=== PATIENT | female | born 1945 | race Caucasian/White ===

== ENCOUNTER 2017-01-09 19:38 | Observation (INO) ==
[2017-01-09] MEDS ORDERED: 0.9 % Sodium Chloride 1,000 ML IVC ONE ×2 (19:58→21:44)
--- NOTE | 2017-01-09 20:18 | Emergency Department Note ---
Addendum entered and electronically signed by Boris Choi DO 01/09/17 22 :21: EKG shows sinus tachycardia at 100 with normal axis and intervals. No ST elevation or depression. No T-wave inversions or flattening. No significant change other than rate from 10/20/2016. Original Note: Disposition Clinical Impression: SIRS (systemic inflammatory response syndrome) Urinary tract infection Qualifiers: Urinary tract infection type: acute cystitis Hematuria presence: with hematuria Qualified Code(s): N30.01 - Acute cystitis with hematuria Disposition: Admitted As Inpatient Condition: Good Time of Disposition: 22:06 General Adult HPI - General Chief complaint: ED Fever Stated complaint: Fever / Sore Throat / Dizziness Time Seen by Provider: 01/09/17 19:41 Source: patient Limitations: no limitations - History of Present Illness Pain Scale: 10 - Related Data Home Medications Medication Instructions Recorded Confirmed Albuterol Sulfate [Albuterol 2 puff IH Q4H PRN 10/28/16 10/28/16 Inhaler] Aspirin [Lo-Dose Aspirin EC] 81 mg PO DAILY 10/28/16 10/28/16 Atorvastatin Calcium [Lipitor] 40 mg PO DAILY 10/28/16 10/28/16 DiphenhydraMINE [Benadryl] 50 mg PO ONCE 10/28/16 10/28/16 Gabapentin [Neurontin] 600 mg PO TID 10/28/16 10/28/16 Omeprazole 40 mg PO DAILY 10/28/16 10/28/16 Ondansetron HCl [Zofran] 4 mg PO TID PRN 10/28/16 10/28/16 Potassium Chloride [Klor-Con 10 meq PO DAILY 10/28/16 10/28/16 Sprinkle] Sertraline [Zoloft] 150 mg PO DAILY 10/28/16 10/28/16 Tizanidine HCl [Zanaflex] 4 mg PO TID PRN 10/28/16 10/28/16 Valsartan/Hydrochlorothiazide 1 each PO DAILY 10/28/16 10/28/16 [Diovan Hct 160-25 mg Tablet] predniSONE [Prednisone] 50 mg PO ONCE 10/28/16 10/28/16 Previous Rx's Medication Instructions Recorded Acetaminophen [Tylenol] 1,000 mg PO Q6HR PRN #90 tablet 10/28/16 Clopidogrel [Plavix] 75 mg PO DAILY #30 tablet 10/28/16 Allergies Allergy/AdvReac Type Severity Reaction Status Date / Time Iodinated Contrast Media - Allergy Hives Verified 10/28/16 06:43 Oral and INO Inhibitors AdvReac Cough Verified 10/28/16 06:43 Past Medical History - Past Medical History Medical history: Reports: GERD, hyperlipidemia, hypertension Surgical history: Reports: cholecystectomy, hysterectomy Psychiatric history: Reports: anxiety - Social History Smoking Status: Former smoker Smokeless Tobacco Status: No Alcohol use: Reports: none Drug use: Reports: none Physical Exam - Head Head exam: atraumatic, normocephalic, normal inspection - Eye Eye exam: Present: normal appearance, PERRL, EOMI - ENT ENT exam: normal exam, normal oropharynx, mucous membranes moist - Neck Neck exam: Present: normal inspection, full ROM, trachea midline - Chest Chest inspection: Present: normal inspection, symmetric chest wall rise - Respiratory Respiratory exam: Clear to auscultation bilaterally without wheezes rales or rhonchi Cardiovascular Cardiovascular exam: Present: regular rate, normal rhythm, normal heart sounds - Abdominal Exam Abdominal exam: Present: soft, Non-Tender. Absent: tenderness, distention, guarding, rebound, rigidity - Extremities Exam Extremities exam: Present: normal inspection, full ROM - Back Exam Back exam: Present: normal inspection, full ROM. Absent: tenderness, CVA tenderness (R), CVA tenderness (L) - Neurological Exam Neurological exam: Present: alert, oriented X3, CN II-XII intact - Psychiatric Psychiatric exam: Present: normal affect, normal mood - Skin Skin exam: Present: warm, dry, intact, normal color - General Limitations: no limitations General appearance: alert Course - Reevaluation(s) Reevaluation #1: Patient found to have urinary tract infection here with significant leukocytosis at 19. Patient has a normal lactate. Accepted by Dr. Monroe on [facility]. Time: 22:05 Vital Signs Temperature 98.3 F 01/09/17 19:41 Pulse Rate 95 01/09/17 19:41 Respiratory Rate 14 01/09/17 19:41 Blood Pressure 156/77 01/09/17 19:41 O2 Sat by Pulse Oximetry 97 01/09/17 19:41 Temperature 98.3 F 01/09/17 19:41 Pulse Rate 100 01/09/17 21:03 Respiratory Rate 20 01/09/17 21:03 Blood Pressure 146/78 01/09/17 21:03 O2 Sat by Pulse Oximetry 96 01/09/17 21:03 Oxygen Delivery Oxygen Delivery Room Air Medical Decision Making - Lab Data Result diagrams: 01/09/17 20:36 01/09/17 20:36 Lab Results 01/09/17 01/09/17 01/09/17 Range/Units 20:20 20:35 20:36 WBC 19.3 H (4.3-11.1) K/mcL RBC 5.13 H (3.82-4.97) M/mcL Hgb 14.0 (11.5-15.4) g/dL Hct 42.9 (35.3-44.9) % MCV 83.6 (83.0-100.0) fL MCH 27.3 L (28.0-33.3) pg MCHC 32.6 (31.6-35.5) g/dL RDW 13.2 (11.5-14.5) % Plt Count 148 (140-400) K/mcL MPV 10.6 (9.4-12.4) fL Immature Gran % 0.4 (0-4) % Seg Neutrophils % 90.6 % Lymphocytes % 3.0 % Monocytes % 5.8 % Eosinophils % 0.0 % Basophils % 0.2 % Neutrophils # 17.5 H (1.6-8.9) K/mcL Lymphocytes # 0.6 (0.6-4.6) K/mcL Monocytes # 1.1 (0.0-1.3) K/mcL Eosinophils # 0.0 (0.0-0.6) K/mcL Basophils # 0.0 (0.0-0.2) K/mcL Immature Plt Fraction 6.6 H (1.1-6.1) % VBG pH (7.32-7.42) pH Units VBG pCO2 (41-51) mmHg VBG pO2 (25-40) mmHg VBG HCO3 (21-27) mEq/L Sodium (136-145) mEq/L Potassium (3.5-4.5) mEq/L Chloride (98-109) mEq/L Carbon Dioxide (19-29) mEq/L BUN (7-20) mg/dL Creatinine (0.57-1.11) mg/dL Est GFR ( Amer) (> 60) Est GFR (Non-Af Amer) (> 60) BUN/Creatinine Ratio (6-26) Glucose (70-99) mg/dL Calculated Osmolality (280-300) Lactic Acid 1.4 (0.5-2.2) mmol/L Calcium (8.6-10.8) mg/dL Magnesium (1.6-2.6) mg/dL Urine Color Yellow (Yellow) Urine Clarity Cloudy A (Clear) Urine pH 6.0 (5.0-8.0) pH Units Ur Specific [place] 1.025 (1.010-1.025) Urine Protein 100 H (Neg-Trace) mg/dL Urine Glucose (UA) Normal (Normal) mg/dL Urine Ketones Negative (Negative) mg/dL Urine Blood Large H (Negative) Urine Nitrite Negative (Negative) Urine Bilirubin Negative (Negative) Urine Urobilinogen Normal (Normal) mg/dL Ur Leukocyte Esterase Large H (Negative) Urine Microscopic RBC 30-50 H (0-3) per hpf Urine Microscopic WBC 30-50 H (0-3) per hpf Ur Squamous Epith Cells Many H (None-Few) per lpf Urine Bacteria Few (None-Few) per hpf Hyaline Casts Moderate H (None-Few) per lpf Ur Culture Indicated? YES A (NO) 01/09/17 01/09/17 01/09/17 Range/Units 20:36 20:36 21:53 WBC (4.3-11.1) K/mcL RBC (3.82-4.97) M/mcL Hgb (11.5-15.4) g/dL Hct (35.3-44.9) % MCV (83.0-100.0) fL MCH (28.0-33.3) pg MCHC (31.6-35.5) g/dL RDW (11.5-14.5) % Plt Count (140-400) K/mcL MPV (9.4-12.4) fL Immature Gran % (0-4) % Seg Neutrophils % % Lymphocytes % % Monocytes % % Eosinophils % % Basophils % % Neutrophils # (1.6-8.9) K/mcL Lymphocytes # (0.6-4.6) K/mcL Monocytes # (0.0-1.3) K/mcL Eosinophils # (0.0-0.6) K/mcL Basophils # (0.0-0.2) K/mcL Immature Plt Fraction (1.1-6.1) % VBG pH (7.32-7.42) pH Units VBG pCO2 (41-51) mmHg VBG pO2 (25-40) mmHg VBG HCO3 (21-27) mEq/L Sodium 134 L (136-145) mEq/L Potassium 3.7 (3.5-4.5) mEq/L Chloride 100 (98-109) mEq/L Carbon Dioxide 23 (19-29) mEq/L BUN 14 (7-20) mg/dL Creatinine 1.06 (0.57-1.11) mg/dL Est GFR ( Amer) > 60 (> 60) Est GFR (Non-Af Amer) 51 L (> 60) BUN/Creatinine Ratio 13 (6-26) Glucose 140 H (70-99) mg/dL Calculated Osmolality 281 (280-300) Lactic Acid 0.9 (0.5-2.2) mmol/L Calcium 9.5 (8.6-10.8) mg/dL Magnesium 1.8 (1.6-2.6) mg/dL Urine Color (Yellow) Urine Clarity (Clear) Urine pH (5.0-8.0) pH Units Ur Specific [place] (1.010-1.025) Urine Protein (Neg-Trace) mg/dL Urine Glucose (UA) (Normal) mg/dL Urine Ketones (Negative) mg/dL Urine Blood (Negative) Urine Nitrite (Negative) Urine Bilirubin (Negative) Urine Urobilinogen (Normal) mg/dL Ur Leukocyte Esterase (Negative) Urine Microscopic RBC (0-3) per hpf Urine Microscopic WBC (0-3) per hpf Ur Squamous Epith Cells (None-Few) per lpf Urine Bacteria (None-Few) per hpf Hyaline Casts (None-Few) per lpf Ur Culture Indicated? (NO) 01/09/17 Range/Units 21:53 WBC (4.3-11.1) K/mcL RBC (3.82-4.97) M/mcL Hgb (11.5-15.4) g/dL Hct (35.3-44.9) % MCV (83.0-100.0) fL MCH (28.0-33.3) pg MCHC (31.6-35.5) g/dL RDW (11.5-14.5) % Plt Count (140-400) K/mcL MPV (9.4-12.4) fL Immature Gran % (0-4) % Seg Neutrophils % % Lymphocytes % % Monocytes % % Eosinophils % % Basophils % % Neutrophils # (1.6-8.9) K/mcL Lymphocytes # (0.6-4.6) K/mcL Monocytes # (0.0-1.3) K/mcL Eosinophils # (0.0-0.6) K/mcL Basophils # (0.0-0.2) K/mcL Immature Plt Fraction (1.1-6.1) % VBG pH 7.37 (7.32-7.42) pH Units VBG pCO2 44 (41-51) mmHg VBG pO2 30 (25-40) mmHg VBG HCO3 25.4 (21-27) mEq/L Sodium (136-145) mEq/L Potassium (3.5-4.5) mEq/L Chloride (98-109) mEq/L Carbon Dioxide (19-29) mEq/L BUN (7-20) mg/dL Creatinine (0.57-1.11) mg/dL Est GFR ( Amer) (> 60) Est GFR (Non-Af Amer) (> 60) BUN/Creatinine Ratio (6-26) Glucose (70-99) mg/dL Calculated Osmolality (280-300) Lactic Acid (0.5-2.2) mmol/L Calcium (8.6-10.8) mg/dL Magnesium (1.6-2.6) mg/dL Urine Color (Yellow) Urine Clarity (Clear) Urine pH (5.0-8.0) pH Units Ur Specific [place] (1.010-1.025) Urine Protein (Neg-Trace) mg/dL Urine Glucose (UA) (Normal) mg/dL Urine Ketones (Negative) mg/dL Urine Blood (Negative) Urine Nitrite (Negative) Urine Bilirubin (Negative) Urine Urobilinogen (Normal) mg/dL Ur Leukocyte Esterase (Negative) Urine Microscopic RBC (0-3) per hpf Urine Microscopic WBC (0-3) per hpf Ur Squamous Epith Cells (None-Few) per lpf Urine Bacteria (None-Few) per hpf Hyaline Casts (None-Few) per lpf Ur Culture Indicated? (NO) Attestation Statement - Attestation Attestation: I personally interviewed and examined this patient and my medical decision- making was reviewed with the ED Resident Physician, Dr. Choi. I agree with the documented findings, disposition and treatment plan as described except to the extent set forth below. Patient is a 71-year-old white female brought in by family today for gradually worsening lightheadedness that seems related to positional changes which is cauterized a few falls over the last 24 hours. Patient denies any pain or injury related to the fall, no loss of consciousness. Patient states that she is just been feeling "tired and just do not feel good". Patient denies any fevers although she has been feeling chills. Patient denies any upper respiratory symptoms or sore throat, no chest pain or pressure, no shortness of breath, no abdominal pain or cramping, no nausea vomiting or bowel changes, patient also denies any urinary symptoms or flank pain. The daughter had mentioned that recently discontinued and then restarted on her blood pressure medicines with labile blood pressure issues, was restarted on her blood pressure medicine approximately 6 weeks ago. On exam patient with numerous scabs diffusely located but no acute erythema or warmth, no fluctuance or induration. Remainder of exams within normal limits. EKG was obtained which showed a sinus tachycardia at [address] or T- wave changes. Labs were sent and shows a patient with a leukocytosis with a left shift, evidence of urinary tract infection. Patient meets SIRS criteria with positive source in the urine. Patient has received a liter fluid bolus while here and blood pressure has remained stable throughout her ED course. We will initiate IV antibiotics and admit patient for urosepsis and continued hydration.
[2017-01-09 20:33] LABS: Bilirubin,Urine Negative (Negative); Blood,Urine Large (Negative); Clarity,Urine Cloudy (Clear); Color,Urine Yellow (Yellow); Glucose,Urine (UA) Normal (Normal); Ketones,Urine Negative (Negative); Leukocyte Esterase,Urine Large (Negative); Nitrite,Urine Negative (Negative); Protein,Urine 100 mg/dL (Neg-Trace); Specific Gravity,Urine 1.025 (1.010-1.025); Urobilinogen,Urine Normal (Normal)
[2017-01-09 20:35] LABS: Bacteria,Urine Few per hpf (None-Few); Hyaline Casts,Urine Moderate per lpf (None-Few); Squamous Epithelial Cell,Urine Many per lpf (None-Few); WBC,Urine 30-50 per hpf (0-3)
[2017-01-09 20:43] LABS: Basophils % 0.2 %; Hematocrit 42.9 % (35.3-44.9); Immature Granulocytes % 0.4 % (0-4); Immature Platelets 6.6 % (1.1-6.1); Lymphocytes # 0.6 K/mcL (0.6-4.6); Mean Corpuscular HGB Conc 32.6 g/dL (31.6-35.5); Mean Corpuscular Hemoglobin 27.3 pg (28.0-33.3); Mean Corpuscular Volume 83.6 fL (83.0-100.0); Mean Platelet Volume 10.6 fL (9.4-12.4); Monocytes # 1.1 K/mcL (0.0-1.3); Monocytes % 5.8 %; Neutrophils # 17.5 K/mcL (1.6-8.9); Platelet Count 148 K/mcL (140-400); Red Blood Count 5.13 M/mcL (3.82-4.97); Red Cell Distribution Width 13.2 % (11.5-14.5); Segmented Neutrophils % 90.6 %
[2017-01-09 20:45] LABS: RBC,Urine 30-50 per hpf (0-3)
[2017-01-09 20:59] LABS: BUN/Creatinine Ratio 13 (6-26); Blood Urea Nitrogen 14 mg/dL (7-20); Calcium 9.5 mg/dL (8.6-10.8); Carbon Dioxide 23 mEq/L (19-29); Chloride 100 mEq/L (98-109); Glucose 140 mg/dL (70-99); Osmolality,Calculated 281 (280-300); Potassium 3.7 mEq/L (3.5-4.5); Sodium 134 mEq/L (136-145); eGFR For African Americans > 60 (> 60); eGFR For Non-African Americans 51 (> 60)
[2017-01-09 22:00] LABS: VBG HCO3 25.4 mEq/L (21-27); VBG PH 7.37 pH Units (7.32-7.42)
[2017-01-09] MEDS ORDERED: Naloxone 0.4 MG/ML INJ IVP PRN (22:49)
[2017-01-09] MEDS ORDERED: Acetaminophen 325 MG TABLET PO PRN (22:49)
--- NOTE | 2017-01-09 22:55 | Internal Med History&Physical ---
Date of Encounter: 01/09/17 Time of Encounter: 22:00 Assessment and Plan (1) Sepsis Current visit: Yes Status: Acute Patient has UTI, elevated WBC and tachycardia in the emergency room. Meet criteria of sepsis. Her lactate is normal. - Goal directed resuscitation has been started from ER. Continue IV fluid. - Continue Rocephin IV. - Blood culture and urine culture sent. Follow-up result. - Closely monitor patient. Qualifiers: Sepsis type: sepsis due to unspecified organism Qualified Code(s): A41.9 - Sepsis, unspecified organism (2) URI (upper respiratory infection) Current visit: Yes Status: Acute Patient has symptoms of URI. - We will do the rapid strep test. However, patient is on antibiotics already. - Symptomatic treatment and supportive treatment Qualifiers: URI type: acute tonsillitis Pharyngitis/tonsillitis etiology: unspecified etiology Qualified Code(s): J03.90 - Acute tonsillitis, unspecified (3) Hypertension Current visit: Yes Status: Acute BP is stable. Continue home medication. Qualifiers: Hypertension type: essential hypertension Qualified Code(s): I10 - Essential (primary) hypertension (4) DVT prophylaxis Current visit: Yes Status: Acute Heparin subcutaneously (5) Urinary tract infection Current visit: Yes Status: Acute Continue antibiotic. Follow-up urine culture. Qualifiers: Urinary tract infection type: acute cystitis Hematuria presence: without hematuria Qualified Code(s): N30.00 - Acute cystitis without hematuria Internal Medicine - H&P: HPI Chief complaint: Dizziness and weakness Admitted From: Home Plans for Post Hospital Care: Home History of present illness: Ms. Oliveira is a 71 year old female presented to ER for generalized weakness, dizziness. Patient said she has a runny nose and sore throat for several days. She feels weak, dizziness, and today she almost fell. She denies loss of consciousness. She said that she has chills but not sure if she has fever. She has no nausea, vomiting, chest pain, SOB, cough, or diarrhea. She complains of mild abdominal pain. She denies dysuria, urgency, burning on urination. In emergency room, she was found to tachycardia and leukocytosis. She was also found UTI by urinanalysis. She was admitted as sepsis and UTI. I discussed the CODE STATUS with patient. She is a full code. Past Med Surg Social Fam HX - Past Medical History Medical history: GERD, hyperlipidemia, hypertension Psychiatric history: anxiety - Past Surgical History Surgical History: cholecystectomy, hysterectomy - Social History Smoking Status: Former smoker Smokeless Tobacco Status: No Alcohol use: none Drug use: none - Family History Mother Living Status: Hx Family Cardiac Disorders: Yes ([place]) Father Living Status: Hx Family Cardiac Disorders: Yes ([place]) Internal Medicine - H&P: Meds Albuterol Sulfate [Albuterol Inhaler] 2 puff IH Q4H PRN 10/28/16 [History] Aspirin [Lo-Dose Aspirin EC] 81 mg PO DAILY 10/28/16 [History] Atorvastatin Calcium [Lipitor] 40 mg PO DAILY 10/28/16 [History] Clopidogrel [Plavix] 75 mg PO DAILY #30 tablet 10/28/16 [Rx] Gabapentin [Neurontin] 600 mg PO TID 10/28/16 [History] Omeprazole 40 mg PO DAILY 10/28/16 [History] Potassium Chloride [Klor-Con Sprinkle] 10 meq PO DAILY 10/28/16 [History] Sertraline [Zoloft] 150 mg PO DAILY 10/28/16 [History] Tizanidine HCl [Zanaflex] 4 mg PO TID PRN 10/28/16 [History] Valsartan [Diovan] 40 mg PO DAILY 01/09/17 [History] Allergies Iodinated Contrast Media - Oral and Allergy (Verified 10/28/16 06:43) Hives IVP dye causes hives per patient INO Inhibitors Adverse Reaction (Verified 10/28/16 06:43) Cough All Systems PM: A 10-system review of systems was performed and is negative for pertinent findings except as documented above in the HPI. - Constitutional Vitals: Temp Pulse Resp BP Pulse Ox 98.3 F 100 14 131/76 96 01/09/17 19:41 01/09/17 21:03 01/09/17 22:23 01/09/17 22:23 01/09/17 21:03 General appearance: Present: A&O X 3, no acute distress, answers questions appropriately - Head Head exam: Present: atraumatic, normocephalic - Eye Eye exam: Present: PERRL, conjuntiva pink, sclera anicteric Pupils: Present: PERRL - Neck Neck exam general surgery: Present: supple, trachea midline. Absent: lymphadenopathy Additional comments: Tonsil enlargement bilaterally, no discharge - Respiratory Respiratory exam: Present: CTAB. Absent: accessory muscle use, rales, rhonchi, wheezes - Cardiovascular Cardiovascular exam: Present: RRR, +S1, +S2. Absent: diastolic murmur, gallop, rubs, systolic murmur - GI/Abdominal GI/Abdominal exam: Present: normal bowel sounds, soft, tenderness (Mild tenderness in whole belly, without rebound or guarding), no peritoneal signs. Absent: distended - Extremities Exam Extremities exam: Present: warm, radial pulses palpable and symetrical. Absent : calf tenderness, cyanotic, pedal edema - Neurological Exam Neurological exam: Present: CN II-XII intact, oriented X3, no focal deficits. Absent: pronater drift, facial droop, speech deficit - Skin Skin exam: Present: dry, intact Internal Med - H&P Results - Labs CBC & Chem 7: 01/09/17 20:36 01/09/17 20:36
[2017-01-09] MEDS: 0.9 % Sodium Chloride 1,000 ML IVC SCH (23:04)
[2017-01-10] MEDS ORDERED: tiZANidine 4 MG TABLET PO PRN
[2017-01-10 00:42] LABS: Basophils % 0.1 %; Hematocrit 36.2 % (35.3-44.9); Immature Granulocytes % 0.3 % (0-4); Lymphocytes # 0.8 K/mcL (0.6-4.6); Lymphocytes % 4.5 %; Mean Corpuscular HGB Conc 33.4 g/dL (31.6-35.5); Mean Corpuscular Hemoglobin 28.1 pg (28.0-33.3); Mean Platelet Volume 10.6 fL (9.4-12.4); Monocytes # 1.2 K/mcL (0.0-1.3); Monocytes % 6.8 %; Neutrophils # 14.9 K/mcL (1.6-8.9); Platelet Count 116 K/mcL (140-400); Red Blood Count 4.31 M/mcL (3.82-4.97); Red Cell Distribution Width 13.4 % (11.5-14.5); Segmented Neutrophils % 88.3 %
[2017-01-10 00:43] LABS: Hemoglobin 12.1 g/dL (11.5-15.4)
[2017-01-10 01:02] LABS: BUN/Creatinine Ratio 15 (6-26); Blood Urea Nitrogen 13 mg/dL (7-20); Calcium 8.2 mg/dL (8.6-10.8); Carbon Dioxide 20 mEq/L (19-29); Chloride 104 mEq/L (98-109); Glucose 122 mg/dL (70-99); Osmolality,Calculated 279 (280-300); Potassium 3.7 mEq/L (3.5-4.5); Sodium 134 mEq/L (136-145); eGFR For African Americans > 60 (> 60); eGFR For Non-African Americans > 60 (> 60)
[2017-01-10] MEDS ORDERED: *HR* Heparin 5,000 UNIT/ML VIAL SQ SCH (06:00)
[2017-01-10] MEDS ORDERED: Valsartan 80 MG TABLET PO SCH (09:00)
[2017-01-10] MEDS ORDERED: Aspirin Enteric Coated 81 MG Tablet PO SCH (09:00)
[2017-01-10] MEDS: 0.9 % Sodium Chloride 1,000 ML IVC SCH (09:13)
[2017-01-10] MEDS: Gabapentin 300 MG CAPSULE PO SCH ×2 (09:14→16:34)
[2017-01-10 10:56] VITALS: BP 127/75
--- NOTE | 2017-01-10 12:54 | Electrocardiograph Report ---
[place] [id number] Test Date: 2017-01-09 Pat Name: Vreito Oliveira Department: 102 Room: 3A25 Gender: F [employer]: : [id number] Requested By: Boris Choi Order Number: [id number] Reading MD: Hakeem Sr Measurements Intervals [place] Rate: 100 P: 42 AK: 166 QRS: 35 QRSD: 78 T: 42 QT: 338 QTc: 395 Interpretive Statements SINUS TACHYCARDIA ABNORMAL RHYTHM ECG Electronically Signed On 01-10-2017 12:53:03 EDT by Hakeem Sr
--- NOTE | 2017-01-10 13:01 | Discharge Summary ---
Date of Encounter: 01/10/17 Time of Encounter: 12:58 - Discharge Diagnosis (1) Sepsis Priority: Primary Status: Acute Comments: secondary to streptococcal adenotonsillitis vs UTI Qualifiers: Sepsis type: sepsis due to unspecified organism Qualified Code(s): A41.9 - Sepsis, unspecified organism (2) Streptococcal adenotonsillitis Priority: Primary Status: Acute (3) GERD (gastroesophageal reflux disease) Priority: Secondary Status: Acute Qualifiers: Esophagitis presence: without esophagitis Qualified Code(s): K21.9 - Gastro -esophageal reflux disease without esophagitis (4) HLD (hyperlipidemia) Priority: Secondary Status: Acute Qualifiers: Hyperlipidemia type: unspecified Qualified Code(s): E78.5 - Hyperlipidemia , unspecified (5) Urinary tract infection Priority: Primary Status: Acute Qualifiers: Urinary tract infection type: acute cystitis Hematuria presence: without hematuria Qualified Code(s): N30.00 - Acute cystitis without hematuria (6) Hypertension Priority: Secondary Status: Acute Qualifiers: Hypertension type: essential hypertension Qualified Code(s): I10 - Essential (primary) hypertension - Discharge Medications Prescriptions: Cefdinir [Omnicef] 300 mg PO BID #10 capsule Home Medications: Albuterol Sulfate [Albuterol Inhaler] 2 puff IH Q4H PRN 10/28/16 [History] Aspirin [Lo-Dose Aspirin EC] 81 mg PO DAILY 10/28/16 [History] Atorvastatin Calcium [Lipitor] 40 mg PO DAILY 10/28/16 [History] Clopidogrel [Plavix] 75 mg PO DAILY #30 tablet 10/28/16 [Rx] Gabapentin [Neurontin] 600 mg PO TID 10/28/16 [History] Omeprazole 40 mg PO DAILY 10/28/16 [History] Potassium Chloride [Klor-Con Sprinkle] 10 meq PO DAILY 10/28/16 [History] Sertraline [Zoloft] 150 mg PO DAILY 10/28/16 [History] Valsartan [Diovan] 40 mg PO DAILY 01/09/17 [History] Cefdinir [Omnicef] 300 mg PO BID #10 capsule 01/10/17 [Rx] Ergocalciferol (VITAMIN D2) [Vitamin D2] 50,000 unit PO QWEEK 01/10/17 [History] Allergies/Adverse Reactions: Allergies Iodinated Contrast Media - Oral and Allergy (Verified 01/10/17 11:51) Hives IVP dye causes hives per patient INO Inhibitors Adverse Reaction (Verified 01/10/17 11:51) Cough Date of admission: 01/09/17 22:13 Primary care physician: Petey Sevilla DO - Patient Status Disposition: Home, Self-Care Condition: Good - Discharge Instructions Follow Up With: Petey Sevilla DO [Primary Care Provider] - Additional Instructions: Follow up with Primary care physician within 7 days. COmplete 5 more days of cefdinir. - Diet and Activity Activity: increase activity as tolerated Diet: low fat, low cholesterol Hospital course: Ms. Oliveira is a 71 year old female with a past medical history of HLD , HTN , GERD, presented to the ER for generalized weakness, dizziness. Patient said she had a runny nose and sore throat for several days. She felt weak, dizziness , and almost fell. She denied loss of consciousness. She said that she had chills but not sure if she had a fever. She had no nausea, vomiting, chest pain , SOB, cough, or diarrhea. She complained of mild abdominal pain. She denied dysuria, urgency, burning on urination. In emergency room, she was found to tachycardia and leukocytosis. She was also found UTI by urinanalysis. She was admitted as sepsis. Rapid stresp testwas positive. The patient was started on Rocephin . Feels much better , her WBC has come dons to 16.8 from 19.3. Run a fever of 100.6 last night but not today. A urine culture from March of last year grew E coli resistant to ampicillin and sulbactam. She was given the option to stay another day but prefers to go home as today is mother's day. She will receive a second dose of Rocephin prior to her discharge and will continue cefdinir to treat both strep throat and UTI. - Time Spent with Patient Total time spent providing and/or coordinating discharge services: Greater than 30 minutes (40 min) - Constitutional Vitals: Temp Pulse Resp BP Pulse Ox 97.7 F 93 18 127/75 98 01/10/17 10:53 01/10/17 10:53 01/10/17 10:53 01/10/17 10:53 05/14/17 10:53 General appearance: Present: A&O X 3, no acute distress, answers questions appropriately - Head Head exam: Present: atraumatic, normocephalic - Eye Eye exam: Present: PERRL, conjuntiva pink, sclera anicteric Pupils: Present: PERRL Additional comments: tonsills less erythematous - Neck Neck exam general surgery: Present: supple, trachea midline. Absent: lymphadenopathy - Respiratory Respiratory exam: Present: CTAB. Absent: accessory muscle use, rales, rhonchi, wheezes - Cardiovascular Cardiovascular exam: Present: RRR, +S1, +S2. Absent: diastolic murmur, gallop, rubs, systolic murmur - GI/Abdominal GI/Abdominal exam: Present: normal bowel sounds, soft, no peritoneal signs. Absent: distended, tenderness - Extremities Exam Extremities exam: Present: warm, radial pulses palpable and symetrical. Absent : calf tenderness, cyanotic, pedal edema - Neurological Exam Neurological exam: Present: CN II-XII intact, oriented X3, no focal deficits. Absent: pronater drift, facial droop, speech deficit - Skin Skin exam: Present: dry, intact
== END 2017-01-10 16:30 | disposition home or self-care (01) ==
LOC: EMEROO 19:38 → 3ANU 19:38
PROVIDERS: ADMIT Pediatrics; ATTEND Internal Medicine

== ENCOUNTER 2020-12-18 13:48 | Inpatient (IN) ==
[2020-12-18 14:43] LABS: Bilirubin,Urine Negative (Negative); Blood,Urine Trace (Negative); Clarity,Urine Turbid (Clear); Color,Urine Yellow (Yellow); Glucose,Urine (UA) Normal (Normal); Hyaline Casts,Urine Many per lpf (None Seen); Ketones,Urine Negative (Negative); Leukocyte Esterase,Urine Negative (Negative); Mucus,Urine Few per lpf (None-Few); Nitrite,Urine Negative (Negative); PH,Urine 5.5 pH Units (5.0-8.0); Protein,Urine 30 mg/dL (Neg-Trace); RBC,Urine 0-3 per hpf (0-3); Renal Epithelial Cells,Urine Few per hpf (None-Few); Specific Gravity,Urine 1.014 (1.010-1.025); Squamous Epithelial Cell,Urine Few per hpf (None-Few); Urobilinogen,Urine Normal (Normal); WBC,Urine 0-3 per hpf (0-3)
[2020-12-18 14:49] LABS: Amphetamine Screen,Urine Negative ng/mL (Cutoff=1000); Barbiturate Screen,Urine Negative ng/mL (Cutoff=200); Benzodiazepines Screen,Urine Negative ng/mL (Cutoff=200); Cannabinoid Screen,Urine Negative ng/mL (Cutoff = 50); Cocaine Screen,Urine Negative ng/mL (Cutoff= 300); Opiate Screen,Urine Negative ng/mL (Cutoff=300); Phencyclidine Screen,Urine Negative ng/mL (Cutoff=25)
[2020-12-18 14:54] LABS: BUN/Creatinine Ratio 9 (6-26); Blood Urea Nitrogen 8 mg/dL (8-23); Calcium 8.9 mg/dL (8.6-10.3); Carbon Dioxide 21 mEq/L (23-29); Chloride 107 mEq/L (98-107); Glucose 166 mg/dL (70-105); Osmolality,Calculated 292 (280-300); Potassium 2.8 mEq/L (3.5-5.1); Sodium 140 mEq/L (136-145); Troponin I < 0.03 ng/mL (< 0.04); eGFR For African Americans > 60 (> 60); eGFR For Non-African Americans 59 (> 60)
[2020-12-18 14:58] LABS: Basophils % 0.2 %; Eosinophils # 0.2 K/mcL (0.0-0.6); Eosinophils % 2.3 %; Hematocrit 38.4 % (35.3-44.9); Hemoglobin 12.6 g/dL (11.5-15.4); Immature Granulocytes % 0.8 % (0-4); Mean Corpuscular HGB Conc 32.8 g/dL (31.6-35.5); Mean Corpuscular Hemoglobin 27.5 pg (28.0-33.3); Mean Corpuscular Volume 83.7 fL (83.0-100.0); Mean Platelet Volume 10.9 fL (9.4-12.4); Monocytes # 0.6 K/mcL (0.0-1.3); Monocytes % 6.5 %; Neutrophils # 7.5 K/mcL (1.6-8.9); Platelet Count 200 K/mcL (140-400); Red Blood Count 4.59 M/mcL (3.82-4.97); Red Cell Distribution Width 13.2 % (11.5-14.5); Segmented Neutrophils % 79.2 %; White Blood Count 9.5 K/mcL (4.3-11.1)
[2020-12-18] MEDS ORDERED: MOM Conc 10 ML UD.LIQ PO PRN (16:34)
[2020-12-18] MEDS ORDERED: Mag Hydrox/Al Hydrox/Simeth 30 ML UDC PO PRN (16:34)
[2020-12-18] MEDS ORDERED: Naloxone 0.4 MG/ML INJ IVP PRN (16:34)
[2020-12-18] MEDS ORDERED: Ondansetron 4 MG/2 ML VIAL IVP PRN (16:34)
[2020-12-18] MEDS ORDERED: Acetaminophen 325 MG TABLET PO PRN (16:34)
[2020-12-18] MEDS ORDERED: Perflutren Lipid Microsphere 1.3 ML in 0.9 % Sodium Chloride 8.7 ML IVP PRN (16:43)
[2020-12-18] MEDS: Thiamine (B-1) 100 MG TABLET PO SCH (19:27)
[2020-12-18] MEDS: Ringers Solution, Lactated 1,000 ML IVC SCH (19:27)
[2020-12-18 23:17] LABS: Potassium 3.1 mEq/L (3.5-5.1)
[2020-12-18 23:43] LABS: Troponin I 0.05 ng/mL (< 0.04)
[2020-12-19 05:05] LABS: Hematocrit 35.7 % (35.3-44.9); Hemoglobin 11.8 g/dL (11.5-15.4); Mean Corpuscular HGB Conc 33.1 g/dL (31.6-35.5); Mean Corpuscular Hemoglobin 27.1 pg (28.0-33.3); Mean Corpuscular Volume 81.9 fL (83.0-100.0); Mean Platelet Volume 10.8 fL (9.4-12.4); Platelet Count 175 K/mcL (140-400); Red Blood Count 4.36 M/mcL (3.82-4.97); Red Cell Distribution Width 13.2 % (11.5-14.5); White Blood Count 11.5 K/mcL (4.3-11.1)
[2020-12-19 06:02] LABS: Thyroid Stimulating Hormone 1.083 mcIU/mL (0.340-5.600); Troponin I 0.04 ng/mL (< 0.04)
[2020-12-19 07:05] LABS: BUN/Creatinine Ratio 11 (6-26); Blood Urea Nitrogen 8 mg/dL (8-23); Carbon Dioxide 25 mEq/L (23-29); Chloride 110 mEq/L (98-107); Chol/HDL Ratio 3.5 (0-4.9); Cholesterol 145 mg/dL (< 200); Glucose 98 mg/dL (70-105); HDL Cholesterol 42 mg/dL (40-59); LDL Cholesterol,Calculated 77 mg/dL (< 100); Magnesium 1.7 mg/dL (1.6-2.6); Osmolality,Calculated 290 (280-300); Phosphorous 2.4 mg/dL (2.7-4.5); Potassium 3.4 mEq/L (3.5-5.1); Sodium 141 mEq/L (136-145); Triglycerides 128 mg/dL (< 150); eGFR For African Americans > 60 (> 60); eGFR For Non-African Americans > 60 (> 60)
[2020-12-19] MEDS: Thiamine (B-1) 100 MG TABLET PO SCH (08:18)
[2020-12-19] MEDS: Aspirin Enteric Coated 81 MG Tablet PO SCH (08:18)
[2020-12-19] MEDS: Ringers Solution, Lactated 1,000 ML IVC SCH (09:31)
[2020-12-20] MEDS: Thiamine (B-1) 100 MG TABLET PO SCH (08:50)
[2020-12-20] MEDS: Aspirin Enteric Coated 81 MG Tablet PO SCH (08:50)
[2020-12-20] MEDS ORDERED: Cyanocobalamin (B-12) 1,000 MCG/ML VIAL IM ONE (09:11)
[2020-12-20 10:00] LABS: Basophils % 0.3 %; Eosinophils # 0.2 K/mcL (0.0-0.6); Hematocrit 38.9 % (35.3-44.9); Hemoglobin 12.9 g/dL (11.5-15.4); Immature Granulocytes % 0.4 % (0-4); Lymphocytes % 10.4 %; Mean Corpuscular HGB Conc 33.2 g/dL (31.6-35.5); Mean Corpuscular Hemoglobin 28.6 pg (28.0-33.3); Mean Corpuscular Volume 86.3 fL (83.0-100.0); Monocytes # 0.5 K/mcL (0.0-1.3); Monocytes % 5.6 %; Neutrophils # 7.6 K/mcL (1.6-8.9); Platelet Count 167 K/mcL (140-400); Red Blood Count 4.51 M/mcL (3.82-4.97); Red Cell Distribution Width 13.3 % (11.5-14.5); Segmented Neutrophils % 81.3 %; White Blood Count 9.4 K/mcL (4.3-11.1)
[2020-12-20 10:20] LABS: BUN/Creatinine Ratio 9 (6-26); Blood Urea Nitrogen 7 mg/dL (8-23); Calcium 9.2 mg/dL (8.6-10.3); Carbon Dioxide 23 mEq/L (23-29); Chloride 108 mEq/L (98-107); Glucose 121 mg/dL (70-105); Magnesium 1.7 mg/dL (1.6-2.6); Osmolality,Calculated 291 (280-300); Potassium 3.2 mEq/L (3.5-5.1); Sodium 141 mEq/L (136-145); eGFR For African Americans > 60 (> 60); eGFR For Non-African Americans > 60 (> 60)
[2020-12-20] MEDS ORDERED: Cyanocobalamin (B-12) 1,000 MCG TABLET PO SCH (15:45)
[2020-12-20 16:15] VITALS: BP 156/75
== END 2020-12-20 19:20 | disposition home or self-care (01) | DRG 312 ==
LOC: 3BNU 13:48 → EMEROOARM 13:48 → SUATTDRO 17:45 → 3BNU 18:11
PROVIDERS: ADMIT Family Medicine; ATTEND Nurse Practitioner